=== PATIENT | female | born 1970 | race Caucasian/White ===

== ENCOUNTER 2019-06-02 18:07 | Emergency (ER) | payer MEDICAID ==
[2019-06-02 18:35] LABS: URINE BLOOD (Dip) POC 2+ (NEGATIVE); URINE KETONES (Dip) POC Trace (NEGATIVE); URINE LEUKOCYTE EST (Dip) POC Negative (NEGATIVE); URINE NITRITE (Dip) POC Positive (NEGATIVE); URINE TOTAL PROTEIN POC Trace (NEGATIVE)
[2019-06-02 18:35] LABS: URINE PH (Dip) POC 5.5 (5.0-8.5)
[2019-06-02 18:43] LABS: ADD MAN DIFF? NO
[2019-06-02 18:47] LABS: WHITE BLOOD COUNT 7.4 10^3/ul (4.8-10.8)
[2019-06-02 18:47] LABS: BASOPHIL # 0.1 10^3/ul (0.0-0.1); BASOPHILS % 0.7 % (0.0-2.0); EOSINOPHILS % 0.5 % (0.0-7.0); HEMATOCRIT 37.7 % (37.0-47.0); HEMOGLOBIN 12.5 g/dl (12.0-16.0); LYMPHOCYTES # 3.2 10^3/ul (0.8-2.9); LYMPHOCYTES % 43.8 % (15.0-51.0); MEAN CORPUSCULAR HEMOGLOBIN 29.3 pg (29.0-33.0); MEAN CORPUSCULAR HGB CONC 33.2 g/dl (32.0-37.0); MEAN CORPUSCULAR VOLUME 88.5 fl (82.0-101.0); MEAN PLATELET VOLUME 9.9 fl (7.4-10.4); MONOCYTE # 0.5 10^3/ul (0.3-0.9); MONOCYTES % 6.1 % (0.0-11.0); NEUTROPHIL # 3.6 10^3/ul (1.6-7.5); NEUTROPHILS % 48.8 % (39.0-77.0); PLATELET COUNT 230 10^3/UL (140-415); RED BLOOD COUNT 4.26 10^6/ul (4.20-5.40); RED CELL DISTRIBUTION WIDTH 15.3 % (11.5-14.5)
[2019-06-02] MEDS: KETOROLAC 15 MG INJ IV (18:56)
[2019-06-02 19:10] LABS: ANION GAP 6 (5-13); BLOOD UREA NITROGEN 10 mg/dl (7-20); CALCIUM 8.5 mg/dl (8.4-10.2); CARBON DIOXIDE 27 mmol/L (21-31); CHLORIDE 105 mmol/L (97-110); CREATININE 1.22 mg/dl (0.44-1.00); Estimated GFR 47 mL/min (>60); GLUCOSE 84 mg/dl (70-220); SODIUM 138 mmol/L (135-144)
[2019-06-02 19:26] LABS: ADD UMIC YES; UR ASCORBIC ACID NEGATIVE (NEGATIVE); UR BILIRUBIN (Dip) NEGATIVE (NEGATIVE); UR BLOOD (Dip) 2+ mg/dL (NEGATIVE); UR CLARITY CLEAR (CLEAR); UR COLOR AMBER (YELLOW); UR GLUCOSE (Dip) NEGATIVE (NEGATIVE); UR KETONES (Dip) NEGATIVE (NEGATIVE); UR LEUKOCYTE ESTERASE (Dip) NEGATIVE Leu/ul (NEGATIVE); UR NITRITE (Dip) POSITIVE (NEGATIVE); UR RBC 18 /HPF (0-5); UR SPECIFIC GRAVITY (Dip) 1.013 (1.003-1.030); UR SQUAMOUS EPITHELIAL CELL FEW /HPF (FEW); UR TOTAL PROTEIN (Dip) NEGATIVE (NEGATIVE); UR UROBILINOGEN (Dip) 2+ mg/dL (NEGATIVE); UR WBC 0 /HPF (0-5)
[2019-06-02] MEDS: CEFTRIAXONE 1 GM/50 ML (PMX) 50 ML IVPB (19:53)
== END 2019-06-02 20:40 | disposition home or self-care (01) ==
LOC: E/R 18:07
DX: N30.00 Acute cystitis without hematuria (principal)
CPT/HCPCS: 36415; 80048; 81001; 81003; 81025; 85025; 96374; 96375; 99284-25